=== PATIENT | male | born 1970 | race Two or more races ===

== ENCOUNTER 2018-12-27 04:33 | Emergency (ER) | payer MEDICAID ==
[~2018-12-27] VITALS: Ht 180.3 cm; Wt 73.9 kg
--- NOTE | 2018-12-27 04:46 | NUR ---
RECEIVED PATIENT AMBULATORY, A/O X4, AWAKE. C/C OF HEADACHE 11/04. SEEN AND EXAMINED BY MD. KEPT ON BED COMFORTABLY.
[2018-12-27] MEDS ORDERED: SUMATRIPTAN SUCCINATE 6 MG/0.5 ML VIAL SQ ONE ×2 (04:55→05:00)
[2018-12-27] MEDS ORDERED: METOCLOPRAMIDE HCL 10 MG/2 ML VIAL ONE (04:55)
[2018-12-27] MEDS ORDERED: METOCLOPRAMIDE HCL 10 MG/2 ML VIAL IV ONE (05:00)
[2018-12-27] MEDS ORDERED: IV NS 0.9% 1,000 ML BAG IV ONE (05:00)
--- NOTE | 2018-12-27 05:00 | NUR ---
INITIATED IV LINE, GOOD BLOOD RETURN NOTED AFTER 1ST ATTEMPT. INFUSED IV NS ORDERED. REGLAN GIVEN ORDERED. WILL CONTINUE TO MONITOR ACCORDINGLY.
--- NOTE | 2018-12-27 05:05 | NUR ---
IMITEX GIVEN ORDERED SQ SMILEY.
--- NOTE | 2018-12-27 05:31 | NUR ---
1L NS INFUSION DONE. PATIENT ASLEEP, EASILY AWAKEN. KEPT ON BED COMFORTABLE. ON FALL PRECAUTIONS.
--- NOTE | 2018-12-27 05:50 | NUR ---
DISCHARGE INSTRUCTIONS AND HEALTH TEACHINGS GIVEN TO PATIENT, VERBALIZED UNDERSTANDING. DISCHARGE PATIENT AT THIS TIME, AMBULATORY TO HOME, SELF-CARE. ALL BELONGINGS ACCOUNTED FOR. PATIENT LEFT THE FACILITY AT THIS TIME.
[2018-12-27 05:51] VITALS: BP 151/93
== END 2018-12-27 05:51 | disposition home or self-care (01) ==
LOC: ER 04:37
DX: G43.909 Migraine, unspecified, not intractable, without status migrainosus (principal)
CPT/HCPCS: 96372; 96374; 99283; A4216; J2765; J3030; J7030

== ENCOUNTER 2020-11-08 00:40 | Emergency (ER) | payer MEDICAID, OTHER ==
[~2020-11-08] VITALS: Ht 180.3 cm; Wt 68.0 kg
[2020-11-08 00:43] VITALS: BP 129/94
[2020-11-08] MEDS ORDERED: ACETAMINOPHEN 325 MG TABLET PO ONE (01:00)
[2020-11-08] MEDS ORDERED: ACETAMINOPHEN 325 MG TABLET ONE (01:03)
== END 2020-11-08 03:01 | disposition home or self-care (01) ==
LOC: ER 00:41
DX: S06.0X0A Concussion without loss of consciousness, initial encounter (principal); Z59.0 Homelessness; W34.00XA Accidental discharge from unspecified firearms or gun, initial encounter; Y93.89 Activity, other specified; Y92.89 Other specified places as the place of occurrence of the external cause; Y99.8 Other external cause status
CPT/HCPCS: 70450-TC

== ENCOUNTER 2022-10-28 19:26 | Emergency (ER) | payer OTHER ==
[~2022-10-28] VITALS: Ht 180.3 cm; Wt 66.7 kg
[2022-10-28 19:27] VITALS: BP 124/96; TEMP 98; O2SAT 98
[2022-10-28] MEDS ORDERED: ACETAMINOPHEN ES 500 MG TABLET ONE (19:57)
[2022-10-28] MEDS ORDERED: OLANZAPINE 5 MG TABLET ONE (19:57)
[2022-10-28] MEDS ORDERED: ACETAMINOPHEN ES 500 MG TABLET PO ONE (20:00)
[2022-10-28] MEDS ORDERED: OLANZAPINE ZYDIS 5 MG TAB.RAPDIS PO ONE (20:00)
== END 2022-10-28 20:16 | disposition left against medical advice (07) ==
LOC: ER 19:27
DX: R51.9 Headache, unspecified (principal); I10 Essential (primary) hypertension; Z88.8 Allergy status to other drugs, medicaments and biological substances; Z59.00 Homelessness unspecified